=== PATIENT | male | born 1965 | race Caucasian/White ===

== ENCOUNTER → 2016-05-12 | Outpatient (CLI) | payer SELFPAY ==
--- OUTSIDE RECORDS SUMMARY | 2016-05-12 15:28 | XMS REPORT | Clinical Summary ---
Author Author Admin, [facility] Organization Lorna Amnis [facility] Address Unknown Phone Unavailable Allergies, Adverse Reactions, Alerts Allergy Name Reaction Description Start Date Severity Status Provider CODEINE trell Critical Active Stacy Pierson RN Conditions or Problems Problem Name Problem Code Onset Date Status Entry Date Provider Comment Standard Description Annotate Hx of removal of foreign object V45.89 Active Lanny Elder Other postsurgical status Foreign body 959.9 Active Wilbur Hanks MD Other and unspecified injury to unspecified site Neck pain, acute 723.1 Active Roel Paz MD Cervicalgia Back pain, thoracic region, left 724.1 Active Roel Paz MD Pain in thoracic spine Medication List Medication Instructions Start Date Stop Date Generic Name NDC Status Provider Patient Instruction MELOXICAM 15 MG TABS 1 po q day for pain with food MELOXICAM 65377944670 Active Radha Pimentel RPT,RMA Active CYCLOBENZAPRINE HCL 10 MG TABS 1 tablet by mouth three times daily as needed for muscle spasm/pain CYCLOBENZAPRINE HCL 74083831247 Active Roel Paz MD Active MOBIC 15 MG TABS 1 tablet by mouth daily MELOXICAM 30834570350 No Longer Active Wilbur Hanks MD Active TAMIFLU 75 MG CAPS 1 qDay x 10 days OSELTAMIVIR PHOSPHATE 15823635212 No Longer Active Alka Bocanegra APRN Active MOBIC 15 MG TABS 1 tablet by mouth daily MOBIC 15 MG TABS 617642 MELOXICAM Inactive TAMIFLU 75 MG CAPS 1 qDay x 10 days TAMIFLU 75 MG CAPS OSELTAMIVIR PHOSPHATE Inactive Vital Signs Date Name Value Unit Range Description blood pressure, diastolic - 8462-4 83 mm[Hg] BP gray blood pressure, systolic - 8480-6 123 mm[Hg] BP sys pulse rate E&M - 8867-4 82 /min Heart rate temperature E&M 98.1 [degF] Body temperature weight E&M - 3141-9 213 [lb_av] Weight Measured blood pressure, diastolic - 8462-4 92 mm[Hg] BP gray blood pressure, systolic - 8480-6 146 mm[Hg] BP sys pulse rate E&M - 8867-4 91 /min Heart rate temperature E&M 97.8 [degF] Body temperature weight E&M - 3141-9 213.5 [lb_av] Weight Measured blood pressure, diastolic - 8462-4 84 mm[Hg] BP gray blood pressure, systolic - 8480-6 136 mm[Hg] BP sys pulse rate E&M - 8867-4 81 /min Heart rate temperature E&M 98.3 [degF] Body temperature weight E&M - 3141-9 208.10 [lb_av] Weight Measured blood pressure, diastolic - 8462-4 87 mm[Hg] BP gray blood pressure, systolic - 8480-6 135 mm[Hg] BP sys pulse rate E&M - 8867-4 89 /min Heart rate temperature E&M 98.1 [degF] Body temperature weight E&M - 3141-9 196.5 [lb_av] Weight Measured Encounters Code Encounter Date Provider Facility CPT-05439 Level 3 Est. Patient 16:57:34 JOVON Valentin DO [facility] CPT-35133 Level 3 New Patient 16:20:55 BIANKA Hanks MD [facility] Procedures Code Procedure Name Date Entry Date Standard Description CPT-79420 Trigger point inj 1 or 2 muscles 16:57:34 [facility] MANA[employer] CPT-57642 Cervical Min 4V - XRAY USE ONLY 11:10:31 VACCINE MANAGER CPT-34748 Chest 2V Frontal and Lat - XRAY USE ONLY 11:09:19 VACCINE MANAGER CPT-65062 Pelvis only - XRAY USE ONLY 11:59:25 CDT
== END ==
LOC: LAB 15:24
PROVIDERS: ATTEND Surgery
DX: Z01.812 Encounter for preprocedural laboratory examination (principal)

== ENCOUNTER 2016-05-16 07:45 | Outpatient (RCR) | payer SELFPAY ==
[2016-05-16 08:05] LABS: HIV 1/2 INTERP See Footnote; HIV AG AB SCREEN Non-Reactive (Non-Reactive)
== END 2016-08-11 | disposition home or self-care (01) ==
LOC: LAB 07:45
PROVIDERS: ATTEND Surgery
DX: Z01.89 Encounter for other specified special examinations (principal)
CPT/HCPCS: 36415; 80074; 86703; 87045; 87046; 87177; 87493